=== PATIENT | male | born 1965 | race Two or more races ===

== ENCOUNTER 2021-06-13 09:36 | Inpatient (IN) | payer MEDICAID, OTHER ==
[~2021-06-13] VITALS: Ht 182.9 cm; Wt 80.0 kg
[2021-06-13 12:17] LABS: Basophils # (auto) 0.1 10 ^3/uL (0-0.2); Basophils % (auto) 0.7 % (0.0-2.0); Eosinophils # (auto) 0.3 10 ^3/uL (0-0.8); Eosinophils % (auto) 4.3 % (0.0-7.0); Hematocrit 35.8 % (41.0-53.0); Hemoglobin 11.8 g/dL (13.5-17.5); Lymphocytes # (auto) 1.4 10 ^3/uL (0.4-5.4); Lymphocytes % (auto) 17.5 % (10.0-50.0); Mean Corpuscular Hemoglobin 30.9 pg (28.0-32.0); Mean Corpuscular Hgb Conc. 32.9 g/dL (32.0-36.0); Mean Corpuscular Volume 93.9 fL (80.0-100.0); Monocytes # (auto) 0.3 10 ^3/uL (0-1.3); Neutrophils # (auto) 5.8 10 ^3/uL (1.6-8.6); Neutrophils % (auto) 73.5 % (37.0-80.0); Nucleated Red Blood Cells % 0.1 %; Red Blood Cells 3.81 10^6/uL (4.5-5.90); Red Cell Distribution Width 14.2 % (11.8-14.3); White Blood Cell 7.9 10^3/uL (4.4-10.8)
[2021-06-13 12:42] LABS: Albumin 3.1 g/dL (3.4-5.0); BUN/Creatinine Ratio 8.1; Bilirubin, Total 0.4 mg/dL (0.2-1.0); Calcium 8.4 mg/dL (8.5-10.1); Total Protein 7.7 g/dL (6.4-8.2)
[2021-06-13 12:44] LABS: Potassium 5.6 mmol/L (3.5-5.1)
[2021-06-13] MEDS ORDERED: SODIUM ZIRCONIUM CYCL 10 GM PAK PO ONE ×2 (14:30→18:00)
[2021-06-13] MEDS ORDERED: DEXTROSE (50%) 50ML SYRG IV ONE (14:30)
[2021-06-13] MEDS ORDERED: InsuLIN REG 1unit/0.01ml Soln (100units/ml) IV ONE (14:30)
[2021-06-13] MEDS ORDERED: CALCIUM GLUC 1,000mg/50ml-NS 50 ML IV ONE (14:30)
[2021-06-13] MEDS ORDERED: ALBUTEROL SULF 2.5 MG/0.5ML(0.5%) NEB SOLN NEB ONE (14:30)
[2021-06-13] MEDS ORDERED: SODIUM BICARBONATE 8.4% INJ 50ML SYRINGE IV ONE (14:30)
[2021-06-13] MEDS ORDERED: FUROSEMIDE 20 MG/2 ML VIAL IV ONE (14:30)
[2021-06-13] MEDS ORDERED: LABETALOL HCL 5 MG/ML 4ML SYRINGE IV ONE (16:00)
[2021-06-13] MEDS ORDERED: NITROGLYCERIN 0.4 MG SL TAB SL PRN (17:45)
[2021-06-13] MEDS ORDERED: MORPHINE SULFATE INJECTION 2 MG/ML SYRG IV PRN (17:45)
[2021-06-13] MEDS: cloNIDine HCL 0.1 MG TAB PO PRN (18:29)
[2021-06-13] MEDS: CARVEDILOL 12.5 MG TAB PO SCH (22:09)
[2021-06-13 22:28] LABS: Urine Bacteria NONE SEEN /hpf (None Seen); Urine Blood Negative /uL (Negative); Urine WBC <1 /hpf (0 - 3)
[2021-06-13] MEDS ORDERED: hydrALAZINE HCL 20 MG/ML VL IV ONE (23:15)
[2021-06-14] MEDS ORDERED: ENALAPRILAT 1.25 MG/ML-1ML VIAL IV ONE (03:30)
[2021-06-14 06:30] VITALS: BP 204/98
[2021-06-14] MEDS: cloNIDine HCL 0.1 MG TAB PO PRN (07:02)
[2021-06-14] MEDS: CARVEDILOL 12.5 MG TAB PO SCH ×2 (08:33→21:17)
[2021-06-14 09:00] VITALS: BP 212/100
[2021-06-14 09:26] LABS: Basophils # (auto) 0.1 10 ^3/uL (0-0.2); Basophils % (auto) 1.4 % (0.0-2.0); Eosinophils # (auto) 0.2 10 ^3/uL (0-0.8); Eosinophils % (auto) 4.3 % (0.0-7.0); Hematocrit 35.6 % (41.0-53.0); Hemoglobin 11.7 g/dL (13.5-17.5); Lymphocytes # (auto) 1.2 10 ^3/uL (0.4-5.4); Lymphocytes % (auto) 27.4 % (10.0-50.0); Mean Corpuscular Hemoglobin 30.6 pg (28.0-32.0); Mean Corpuscular Hgb Conc. 32.9 g/dL (32.0-36.0); Monocytes # (auto) 0.3 10 ^3/uL (0-1.3); Monocytes % (auto) 5.9 % (0.0-12.0); Neutrophils # (auto) 2.7 10 ^3/uL (1.6-8.6); Nucleated Red Blood Cells % 0.2 %; Red Blood Cells 3.83 10^6/uL (4.5-5.90); White Blood Cell 4.4 10^3/uL (4.4-10.8)
[2021-06-14 09:40] LABS: Albumin 2.8 g/dL (3.4-5.0); Calcium 8.7 mg/dL (8.5-10.1); Potassium 5.1 mmol/L (3.5-5.1)
[2021-06-14 09:42] LABS: BUN/Creatinine Ratio 8.6
[2021-06-14 09:45] LABS: Bilirubin, Total 0.6 mg/dL (0.2-1.0); Total Protein 6.9 g/dL (6.4-8.2)
[2021-06-14] MEDS ORDERED: ATORVASTATIN 20 MG TAB PO SCH (10:00)
[2021-06-14] MEDS ORDERED: ASPirin 81 mg TAB PO SCH (10:00)
[2021-06-14] MEDS ORDERED: NIFEdipine ER 30 MG TAB PO SCH (10:00)
[2021-06-14] MEDS ORDERED: LABETALOL HCL 5 MG/ML 4ML SYRINGE IV PRN (11:15)
[2021-06-14] MEDS ORDERED: cloNIDine HCL 0.1 MG TAB PO ONE (11:15)
[2021-06-14] MEDS ORDERED: CLOPIDOGREL BISULFATE 75 MG TAB PO ONE (11:15)
[2021-06-14] MEDS ORDERED: NIFEdipine ER 30 MG TAB PO ONE (11:15)
[2021-06-14] MEDS ORDERED: LORazepam 2MG/ML-1ML VIAL IV PRN ×3 (11:15→22:00)
[2021-06-14] MEDS ORDERED: CARV12.544 PO (11:51)
[2021-06-14] MEDS ORDERED: SEVE800T8 PO (11:51)
[2021-06-14] MEDS ORDERED: CLOP75TA70 PO (11:51)
[2021-06-14] MEDS ORDERED: NIFE1TAB30 PO (11:51)
[2021-06-14 12:39] LABS: Alcohol, Urine < 3.0 mg/dL (0-10); Amphetamine Screen, Urine NEGATIVE (NEGATIVE); Barbiturate Scree,Urine NEGATIVE (NEGATIVE); Benzodiazephine Screen, Urine POSITIVE (NEGATIVE); Cannabinoid Screen, Urine NEGATIVE (NEGATIVE); Cocaine Screen, Urine NEGATIVE (NEGATIVE); Opiate Scree,Urine NEGATIVE (NEGATIVE); Phencyclidine Screen, Urine NEGATIVE (NEGATIVE)
[2021-06-14 13:00] VITALS: BP 207/87
[2021-06-14] MEDS: SEVELAMER 800 MG TAB PO SCH ×2 (13:23→17:29)
[2021-06-14 17:00] VITALS: BP 159/78
[2021-06-14] MEDS: cloNIDine HCL 0.1 MG TAB PO SCH (21:17)
[2021-06-14 21:19] VITALS: BP 148/85
[2021-06-15 05:00] VITALS: BP 136/78
[2021-06-15] MEDS ORDERED: SODIUM CHL 0.9% 1000 ML BAG XX ONE (07:00)
[2021-06-15] MEDS: SEVELAMER 800 MG TAB PO SCH ×3 (08:30→18:06)
[2021-06-15 08:37] LABS: Albumin 2.8 g/dL (3.4-5.0); Calcium 8.8 mg/dL (8.5-10.1); Potassium 5.5 mmol/L (3.5-5.1)
[2021-06-15 08:42] LABS: BUN/Creatinine Ratio 10.3; Bilirubin, Total 0.4 mg/dL (0.2-1.0); Total Protein 7.1 g/dL (6.4-8.2)
[2021-06-15 09:00] VITALS: BP 163/86
[2021-06-15] MEDS ORDERED: CLON0.1T PO (09:07)
[2021-06-15] MEDS ORDERED: NIFE90TA49 PO (09:07)
[2021-06-15] MEDS ORDERED: CLOPIDOGREL BISULFATE 75 MG TAB PO SCH (10:00)
[2021-06-15] MEDS ORDERED: NIFEdipine ER 30 MG TAB PO SCH (10:00)
[2021-06-15] MEDS: cloNIDine HCL 0.1 MG TAB PO SCH (11:41)
[2021-06-15] MEDS: CARVEDILOL 12.5 MG TAB PO SCH (11:42)
[2021-06-15 13:00] VITALS: BP 153/80
[2021-06-15 17:00] VITALS: BP 164/80
[2021-06-15] MEDS ORDERED: ATORVASTATIN 20 MG TAB PO SCH (22:00)
== END 2021-06-15 21:12 | disposition home or self-care (01) | DRG 53 ==
LOC: ER 09:36 → EDBD 09:36 → TELE 17:46 → TELE-CENTR 06-14 04:55
PROVIDERS: ADMIT Internal Medicine; ATTEND Internal Medicine
DX: R56.9 Unspecified convulsions (principal); I12.0 Hypertensive chronic kidney disease with stage 5 chronic kidney disease or end stage renal disease; E44.1 Mild protein-calorie malnutrition; E11.22 Type 2 diabetes mellitus with diabetic chronic kidney disease; I69.351 Hemiplegia and hemiparesis following cerebral infarction affecting right dominant side; N18.6 End stage renal disease; R47.1 Dysarthria and anarthria; E87.5 Hyperkalemia; F17.200 Nicotine dependence, unspecified, uncomplicated; I16.0 Hypertensive urgency; Z20.822 Contact with and (suspected) exposure to COVID-19; Z79.02 Long term (current) use of antithrombotics/antiplatelets; Z99.2 Dependence on renal dialysis; Z79.899 Other long term (current) drug therapy; Z91.19 Patient's noncompliance with other medical treatment and regimen; I69.320 Aphasia following cerebral infarction
CPT/HCPCS: 36415; 70450; 80053; 80061; 80307; 81001; 83036; 84132; 85025; 87426; 90935; 93005; 93306; 93886; 95819; 96365; 96375; 97110; 97163; 99291; G0378; J1815; J3490; J7060